=== PATIENT | female | born 1975 | race Caucasian/White ===

== ENCOUNTER → 2020-02-14 | Outpatient (CLI) | payer OTHER ==
--- NOTE | 2020-02-14 17:14 | Diagnostic Imaging Report ---
Digital mammogram. Indication: Bilateral screening This is the patient's baseline study. At this time there are no current complaints. The fibroglandular tissue in both breasts is heterogeneously dense. This does limit the sensitivity of this exam. There is no primary or secondary sign of malignancy noted. Impression: 1. There is no evidence of malignancy. 2. The patient should have her annual bilateral screening mammogram on schedule in February 2021. ACR BI-RADS Category 1: Negative. Result letter will be mailed to the patient. Note: At least 10% of breast cancer is not imaged by mammography. Dictated by: Dictated on workstation # [id number]
== END ==
LOC: RAD 14:49
PROVIDERS: ATTEND Obstetrics & Gynecology
DX: Z01.419 Encounter for gynecological examination (general) (routine) without abnormal findings (principal); Z12.31 Encounter for screening mammogram for malignant neoplasm of breast
CPT/HCPCS: 77063; 77067

== ENCOUNTER → 2020-02-14 | Outpatient (CLI) | payer OTHER ==
[~2020-02-14] MED LIST: GADOBUTROL 7.5 MMOL/7.5 ML (GADAVIST) VIAL IV ONE
--- NOTE | 2020-02-14 17:07 | Diagnostic Imaging Report ---
Procedure: MRI pelvis with and without contrast. Technique: Multiplanar, multisequence MRI of the pelvis was performed with and without contrast. Date: February 14, 2020. Indication: 44-year-old female, dimpling in the region of the upper right buttock. Comparison: None available. Findings: There is a T1 hyperintense right adnexal mass measuring 5.0 x 3.5 cm in size with layering areas of relatively decreased T2 signal well illustrated on axial T2 sequence image 13. There is no identified internal enhancement. There is severe disc height loss at L5-S1 with endplate degenerative related Modic changes. There is moderate disc height loss at L4-L5. There is otherwise limited assessment of the lumbar spine on this exam. The hip joints are unremarkable in appearance. There is no hip joint effusion. There is no fluid-filled labral tear or paralabral cyst. The muscles and tendons are intact. There is a skin contour abnormality in the right upper gluteal soft tissues in the region of the marker denoting the area of focal patient concern. There is nonspecific soft tissue edema and enhancement at this location which is fairly linear in appearance. There is no identified drainable fluid collection. There is no nodular masslike area of contrast enhancement. There is no acute fracture, bone contusion, or evidence of osteonecrosis. Impression: 1. Skin contour abnormality in the region of the right upper gluteal soft tissues with underlying predominantly linear nonspecific subcutaneous edema and enhancement. There is no well-demarcated focal fluid collection or nodular abnormally enhancing masslike abnormality. 2. T1 hyperintense right adnexal lesion with fluid/fluid level and lack of internal enhancement measuring 5.0 x 3.5 cm in size. Differential diagnostic considerations would include an endometrioma or potentially a hemorrhagic cyst. Dictated by: Dictated on workstation # [id number]
== END ==
LOC: RAD 14:51
PROVIDERS: ATTEND Nurse Practitioner
DX: N83.8 Other noninflammatory disorders of ovary, fallopian tube and broad ligament (principal); M62.89 Other specified disorders of muscle
CPT/HCPCS: 72197

== ENCOUNTER → 2021-06-03 | Outpatient (CLI) | payer OTHER ==
--- NOTE | 2021-06-04 09:40 | Diagnostic Imaging Report ---
INDICATION: Routine screening. COMPARISON: 02/14/2020. TECHNIQUE: 2D and 3D bilateral screening mammography was performed with CAD. FINDINGS: Both breasts are heterogeneously dense, limiting the sensitivity of mammography. The overall parenchymal pattern is stable. No dominant mass or malignant-appearing microcalcifications are seen. The axillae are unremarkable. IMPRESSION: No mammographic features suspicious for malignancy are identified. ACR BI-RADS Category 1: Negative. Result letter will be mailed to the patient. Note: At least 10% of breast cancer is not imaged by mammography. Dictated by: Dictated on workstation # [id number]
== END ==
LOC: RAD 15:30
PROVIDERS: ATTEND Obstetrics & Gynecology
DX: Z12.31 Encounter for screening mammogram for malignant neoplasm of breast (principal)
CPT/HCPCS: 77063; 77067